=== PATIENT | male | born 1965 | race Caucasian/White ===

== ENCOUNTER 2023-07-24 16:00 | Inpatient (IN) | payer OTHER, SELFPAY ==
[2023-07-24] VITALS (8 sets, daily range): BP systolic 103–149; BP diastolic 63–88; BMI 36.9
--- NOTE | 2023-07-24 08:54 | ED.GENMED ---
History of Present Illness
General
Chief Complaint: Chest Pain
Source: patient
Exam Limitations: none
Time Seen by Provider: 07/24/23 08:42
Nursing documentation reviewed up to this point in time: agreed with
Travel History
Have you had any contact with someone who has COVID-19?: No
Do you have any symptoms of coronavirus? Fever > 100 degrees, chills, cough, shortness of breath, sore throat, loss of taste or smell, muscle aches, or headache?: No
History of Present Illness
History of Present Illness:
Patient is a 57-year-old male who presents to the ER for evaluation of intermittent chest pain for the past 2 weeks. He reports he will get pain across his chest and also in his bilateral forearms would last about 5 to 10 minutes. He breaks out in
a sweat and the symptoms go away. He will take baby aspirin up to 2 at a time when he gets the pain but throughout the day because he is afraid the pains can come back he takes additional aspirin and takes up to 10 baby aspirin a day at times. He
denies any shortness of breath with it. He reports he recently moved back from [place] and has not been able to see a physician. His first appointment scheduled for September. He does report he is under a lot of stress going through divorce but does
not feel that this is stress causing his symptoms. He does have a history of hypertension diabetes high cholesterol and ran out of some of his medications. He is taking lisinopril and metformin has not taken his atorvastatin in the the past 3
weeks.
He does not smoke. His brothers have a history of stents. He tells me when he was in [place] he did have a cardiac catheterization about 3 years ago which was normal.
Review of Systems
Review of Systems
Allergies reviewed?: Yes
All Other Systems: ROS reviewed and negative except as documented in HPI and ROS
Constitutional: Reports no symptoms; Denies fever, fatigue or chills
Respiratory: Reports no symptoms
Cardiac: Reports chest pain and diaphoresis; Denies palpitations or syncope
ABD/GI: Denies no symptoms
: Reports no symptoms
Musculoskeletal: Reports no symptoms
Skin: Reports no symptoms
Neurological: Reports no symptoms
Psychiatric: Reports no symptoms
Phy Exam
General Physical Exam
General Presentation: no apparent distress
General age: appears stated age
General Skin: warm and dry
General Habitus: normal
General Mental: alert
General Hydration: appears well hydrated
Cardiovascular Exam
Cardiovascular Exam: regular rate/rhythm, no murmur and normal peripheral pulses
Neurological Exam
Neurological Exam: alert and oriented x3
Musculoskeletal Exam
Musculoskeletal Exam: full ROM
Skin Exam
Skin Exam: normal color and warm/dry
Psychiatric Exam
Psychiatric Exam: normal mood/affect
Scores
Heart Score for Chest Pain Patients
STEMI patient?: Not applicable
Course
Orders/Labs/Results
Orders:
Orders
07/24/23 08:31
EKG [Electrocardiogram (*1)] Urgent
Reason for Study: Chest Pain
EKG- Treatment ONCE
07/24/23 08:53
Cardiac Monitoring- Treatment ONCE
IV Insert/Care/Rem.- Treatment PRN
CR Chest - 2 Views Urgent
Comment:
Reason For Exam: cp
07/24/23 09:14
Complete Blood Count/With Diff Urgent
Comprehensive Metabolic Panel Urgent
Troponin I Urgent
07/24/23 10:03
Lorazepam [Ativan] 1 mg IV NOW STA
07/24/23 10:27
0.9% Sodium Chloride 1000 ml [Nss] 1,000 ml IV BOLUS
07/24/23 10:50
PTT Urgent
07/24/23 11:28
Heparin 4,000 units IV NOW STA
Pharmacy Request to Place See Dose Instructions PO NOW STA
Discontinue all Active Warfarin orders?: Yes
Nursing to Place Non Medication Order As Directed
Physician Order: PTT 6 hours after initial start of Heparin infusion
07/24/23 11:30
Heparin INFUSION titrate rate - CONTINUOUS Heparin 78511 Units/250 ml 25,000 units in 250 ml IV PER PROTOCOL
Weight to be used for heparin protocol in kilograms (kg):: 127.006
Protocol:: Cardiac Tx/Acute Coronary
PTT Goal Range to be used:: PTT 73 to 111 seconds
Order type:: Initial
INITIAL Infusion Dose (UNITS/KG/hr) & then follow protocol:: 12 units/kg/hr
Infusion Dose in UNITS/hr & then follow protocol (UNITS/hr):: 1,000
INFUSION RATE in mL/hr & then follow protocol (mL/hr):: 10
PTT less than or equal to 64 seconds:: Increase rate by 200 units/hr (+ 2 mL/hr)
PTT 64.1 to 72.9 seconds:: Increase rate by 100 units/hr (+ 1 mL/hr)
PTT 73 to 111 seconds:: Target Range. No change in rate.
PTT 111.1 to 130.9 seconds:: Decrease rate by 100 units/hr (- 1 mL/hr)
PTT 131 to 199.9 seconds:: HOLD for 1 hr. Then decrease rate by 200 units/hr (- 2 mL/hr)
PTT greater than or equal to 200 seconds:: HOLD for 2 hrs & Notify Provider. Then decrease by 200 units/hr (-
2 mL/hr)
Lab follow-up:: Each change, PTT q6h until 2 consecutive are therapeutic. Then PTT
daily.
07/24/23 11:31
EKG- Treatment ONCE
07/24/23 11:35
Lorazepam [Ativan] 1 mg IV NOW STA
07/24/23 12:[address] See Dose Instructions IV DIRECTED
07/24/23 12:15
Electrocardiogram (*1) Stat
Reason for Study: Other
Other Reason for Exam: chest pain
Troponin I Urgent
Abnormal Lab Results
07/24/23
09:14
Abs Immat Gran (auto) 0.1 H 10^3/uL
(0-0.05)
Immature Gran % 0.7 H %
(0-0.5)
Eosinophils % 6.1 H %
(0-6)
BUN 21 H mg/dl
(9-20)
Creatinine 0.6 L mg/dL
(0.7-1.3)
Glucose 344 H mg/dl
(70-99)
Troponin I 0.036 H* ng/ml
07/24/23 09:14
07/24/23 09:14
Vital Signs
Initial and Last Documented VS:
Initial Vital Signs
Temp Pulse Resp BP Pulse Ox
98.1 F 81 16 149/69 96
07/24/23 08:36 07/24/23 08:36 07/24/23 08:36 07/24/23 08:36 07/24/23 08:36
Last Documented Vital Signs
Temp Pulse Resp BP Pulse Ox
97.5 F 83 16 148/88 95
07/24/23 10:48 07/24/23 10:48 07/24/23 10:48 07/24/23 10:48 07/24/23 10:48
[employer] Consultant consulted with Physician
[employer] Consultant consulted with physician?: Yes
Name of Physician Consulted: Juani
MDM/Problems Addressed
Differential Diagnosis Includes:
not limited to : ACS PE
MDM/Problems Addressed:
10:25 am : As documented patient is a 37 show male who presented today with intermittent chest pain for the past 2 weeks. He reports a generalize pain to the upper chest into his forearms associate with diaphoresis. He has not had hypertension
high cholesterol [id number] diabetes. He reports he is under a lot of stress recently going through divorce recently moved from [place] but does report he had a normal cardiac cath 3 years ago while he was living there. Patient has
taken multiple doses of baby aspirin over the past intermittent 2 weeks and believes he took at least 4 since 3 AM. Patient presents with no acute ST elevation but an elevated troponin. Cardiology was consulted and presently evaluated patient. Pt
however is very anxious has been done with anxiety for a while. He in fact is pacing in the room. Patient was offered Ativan agreeable to this however very concerned and being admitted.
11:29: Patient is agreeable to admission. IV heparin as per cardiology orders. Will notify cardiology and admit to hospitalist.
Chronic conditions affecting care:
Patient with history of diabetes high cholesterol hypertension
*Radiology
Radiology exam reviewed: radiology read reviewed
*Pulse Oximetry
Patient hypoxic: no
*EKG
Interpretation: normal
Comparison EKG: no comparison EKG present
Heart Rate: 79
Rate: normal
Rhythm: sinus
Ischemia: no ischemia
*Critical Care Note
Total Time (30-74mins, 75-104mins- exclusive of procedures): Not Applicable
Patient Management
Discussion with other providers: [employer] Work[employer] (cardiology )
ED Attending Note
-
Portions of this chart may have been created with voice recognition software.� Occasional wrong word or��sound alike� substitutions may have occurred due to the inherent limitations of voice recognition software.
Discharge Plan
Departure
Patient Disposition: Admit
Date of Disposition: 07/24/23
Time of Disposition: 11:34
Admit to: Telemetry
Admit to doctor: hospitalist
Presentation/result/management discussed w/ accepting MD/DO: Hospitalist
Patient with high blood pressure during this ER visit?: Yes
Condition: Fair
Covid-19: Not Applicable
Discharge Problem:
Chest pain
Prescriptions:
No Action
atorvastatin 40 mg tablet
40 mg PO DAILY
Patient Comments:
07/24/2023, pt. has not been able to fill new prescription since moving from [facility] yet.
metformin 1,000 mg Tablet
500 mg PO BID
dextroamphetamine-amphetamine [Adderall] 20 mg Tablet
20 mg PO DAILY PRN (Reason: ADHD)
Patient Comments:
07/24/2023, last filled on 03/31/2023 for 60 tablets per PDMP.
dextroamphetamine-amphetamine [Adderall] 20 mg Tablet
10 mg PO NOON PRN (Reason: ADHD)
Patient Comments:
07/24/2023, last filled on 03/31/2023 for 60 tablets per PDMP.
lisinopril 10 mg Tablet
10 mg PO DAILY
gabapentin 300 mg Capsule
600 - 900 mg PO HS PRN (Reason: tingling feet)
Patient Comments:
07/24/2023, pt. has not been able to fill new prescription since moving from [facility] yet.
testosterone cypionate 200 mg/mL Oil
300 mg IM Q2W
Patient Comments:
07/24/2023, last filled on 04/06/2023 for 28-day supply per PDMP.
turmeric 400 mg Capsule
400 mg PO DAILY
CoQ-10
1 cap PO DAILY
hydrocodone-acetaminophen
2 tab PO TID
Patient Comments:
07/24/2023, pt. using old prescription from 2006 and does not know the strength.
magnesium
1 tab PO DAILY
magnesium
1 - 2 tab PO HSPRN PRN (Reason: sleep)
aspirin 81 mg Tablet,Delayed Release (Dr/Ec)
81 mg PO DAILY
aspirin 81 mg Tablet,Delayed Release (Dr/Ec)
81 mg PO Q3HPRN PRN (Reason: chest pain)
Referrals:
Elvi Samuel MD [Family Provider] -
Interventions
Interventions:
*Risk Screen - Suicide Last Done: 07/24/23 09:07
*General Assessment Last Done: 07/24/23 09:07
*Neglect/Abuse Screening Last Done: 07/24/23 09:07
ED- Fall Risk Assessment Last Done: 07/24/23 09:07
*ED COVID-19 Vaccine History Last Done: 07/24/23 08:36
ED- Cardiac Assessment Last Done: 07/24/23 09:07
Discharge Date and Time
Print Language: SAO TOMEAN
--- NOTE | 2023-07-24 09:21 | EDRN ---
this RN entered the pts room and the pt had the quality assurance monitor final on, bp cuff on, and Sp02 monitor on and was standing at the side of the bed, the pt stated to this RN, 'I am sorry i can't lay down right now i am just too anxious, i am in the middle
of a divorce and i just have chest pain and i just feel like the zuniga are closing in on me and i just can't lay down right now', this RN asked the pt if he would be willing to sit on the side of the bed so that this RN could place a PIV and obtain
lab work and obtain a blood pressure, the pt was agreeable to sitting on the side of the bed, the pt appears anxious however the pt is pleasant and cooperative, VS WNL, labs drawn and sent, the pt was taken to xray and refused to be taken to xray
via stretcher, the pt wanted to walk, this RN notified the provider
[2023-07-24 09:25] LABS: % Basophils 0.6 % (0-2); % Eosinophils 6.1 % (0-6); % Immature Granulocytes 0.7 % (0-0.5); % Lymphocytes 25.8 % (20.5-51.1); % Monocytes 6.2 % (1.7-9.3); % Neutrophils 60.6 % (42.2-75.2); Absolute Eosinophils 0.4 10^3/uL (0-0.7); Absolute Immature Granulocytes 0.1 10^3/uL (0-0.05); Absolute Lymphocytes 1.9 10^3/uL (1.2-3.4); Absolute Monocytes 0.5 10^3/uL (0.1-0.6); Absolute Neutrophils 4.4 10^3/uL (1.4-6.5); Hematocrit 44.7 % (39.0-52.0); Hemoglobin 16.2 g/dL (13.0-18.0); Mean Corp Hgb Conc. 36.2 g/dL (33.0-37.0); Mean Corpuscular Hgb 29.2 pg (27.0-31.0); Mean Corpuscular Volume 80.7 fL (80.0-94.0); Mean Platelet Volume 9.4 fL (7.4-10.4); Nucleated Red Blood Cells % 0 % (-); Platelet Count 203 10^3/uL (130-400); Red Blood Cell Count 5.54 10^6/uL (4.70-6.10); Red Cell Dist. Width 12.1 % (11.5-14.5); White Blood Cell Count 7.3 10^3/uL (4.8-10.8)
[2023-07-24 09:39] LABS: ALT (SGPT) 35 U/L (0-50); AST (SGOT) 30 U/L (17-59); Albumin 4.3 g/dl (3.5-5.0); Alkaline Phosphatase 96 U/L (38-126); Blood Urea Nitrogen 21 mg/dl (9-20); Calcium 9.6 mg/dl (8.4-10.2); Carbon Dioxide 26 mmol/L (22-30); Chloride 101 mmol/L (98-107); Estimated Creatinine Clearance > 125 ml/min; Glucose 344 mg/dl (70-99); Potassium 4.8 mmol/L (3.5-5.1); Sodium 136 mmol/L (135-145); Total Bilirubin 0.9 mg/dl (0.2-1.3); Total Protein 7.1 g/dl (6.3-8.2); eGFR > 60.00
[2023-07-24 09:52] LABS: Troponin I 0.036 ng/ml
--- NOTE | 2023-07-24 09:58 | EDRN ---
Troponin elevated, this RN notified provider
--- NOTE | 2023-07-24 10:09 | EDRN ---
cardiology currently at the pts bedside, the pt is standing up walking around the room, the pt refuses to be placed on equipment monitor phototypesetting and refuses to sit in the stretcher, this RN notified provider
[2023-07-24] MEDS: ATIVAN 1 MG IV ×2 (10:19→11:38)
--- NOTE | 2023-07-24 10:23 | EDRN ---
with this RN at the pts bedside and cardiology the pt was compliant with sitting on the side of the bed and being placed on the monitor, the pt is hyperventilating and this RN administered Ativan IV for anxiety
--- NOTE | 2023-07-24 10:34 | CON.CAR ---
Addendum entered and electronically signed by Reid Winn MD 07/24/23 19:27:
I spoke with Jose A on the phone to try and prevent him from leaving AGAINST MEDICAL ADVICE. I advised him that leaving without medication could cause harm because he is in atrial fibrillation with rapid ventricular response and just received a
stent. The risks included stroke and . He had just received a stent. He understands this and is okay with going home. He would not tell me necessarily what was important thing that he had to do he said that he had his dog he needs to take
care of. He was able to tell me the risks of leaving which included and verbalized his understanding to me.
Addendum entered and electronically signed by Reid Winn MD 07/24/23 12:40:
I saw and examined the patient.
The ERGONOMIC SPECIALIST's note was reviewed and I agree with the note.
Comment: 57 yo male with HTN, HLD, and NIDDM, who presents to the ER with c/o chest pain for 2 weeks. He describes pain to his right shoulder that radiates to his mid chest area, lasts for 5-10 minutes and resolves on its own.
- heparin gtt, statin, aspirin, lab pack chemist
Original Note:
Consultation
Consultation Request
Date/Time Consultation Requested: 07/24/23 10a
Date/Time Consultation Performed: 07/24/23 10:15
Requesting Provider: MABLE Haynes
Performing Provider: MABLE Hernandez for Dr. Winn
Reason for Consultation: chest pain
Medical History
-
Chief Complaint: chest pain
History of Present Illness:
Mr. Marvin is a 57 yo male with HTN, HLD, and NIDDM, who presents to the ER with c/o chest pain for 2 weeks. He describes pain to his right shoulder that radiates to his mid chest area, lasts for 5-10 minutes and resolves on its own. The pain
occurs with exertion, initially began 2 weeks ago then resolved for several days and has now returned and is relieved with rest. There is associated SOB and PND/orthopnea. He has been taking 10 ASA 81mg daily. Currently he denies any chest pain.
He is extremely anxious and pacing around his room. He states moving here in February 2023 from [place], [place] and is going through a divorce. He has no family local, his ex- is in [place]. He had a cath in [place] 3 years ago that was 'clean'
per his report and is very anxious about having another cath because the wrist cath site hurt. He has not seen a physician since he moved here and he has run out of his medications, only still taking Lisinopril. He typically takes Lisinopril,
Metformin, Lipitor, Gabapentin and Adderall. EKG with NSR, no ischemia. Initial troponin 0.036.
Past Medical History
Past Medical History: Other (as above)
Past Surgical History: Orthopedic (b/l hip and knee replacements)
Social History
Tobacco: Non-Smoker
Alcohol: Occasional
Personal:
Living: Alone
Family History
Family History: Early CAD (3 brothers have stents)
Allergies / Home Medications
Allergy/AdvReac Type Severity Reaction Status Date / Time
No Known Allergies Allergy Unverified 07/24/23 08:37
Review of Systems
-
History Source: Patient
All other systems: Negative unless noted
Physical Exam
Vital Signs
Temp Pulse Resp BP Pulse Ox
98.1 F 79 23 143/71 95
07/24/23 08:36 07/24/23 09:15 07/24/23 09:00 07/24/23 09:10 07/24/23 09:10
Lab Results
07/24/23 09:14
07/24/23 09:14
Troponin I 0.036 ng/ml H* 07/24/23 09:14
Physical Exam
General: Well Developed, Well Nourished, No Apparent Distress and Other (anxious, pacing around his room)
HEENT: Normocephalic and Anicteric
Respiratory: Clear (diminished b/l bases)
Cardiac: S1/S2 and Regular Rhythm
Breast: Deferred by me
GI: Soft, Non Tender, Non Distended and Normal Bowel Sounds
Rectal: Deferred by Provider
Genito-urinary: No Costovertebral Tender
Musculoskeletal: No Clubbing, No Cyanosis and No Edema
Skin: Warm and Dry
Neuro: AO x 3
Psych: Other (anxious)
Impression / Plan
-
Chest pain - concerning for angina.
- exertional chest pain for 2 weeks, abnormal initial troponin 0.036.
- trend troponin.
- plan for [facility] today, he understands but wants to talk to his family before agreeing to stay for a [facility].
- check echo.
HTN - chronic.
- on Lisinopril as an outpatient, continue.
- monitor.
HLD - chronic.
- ran of out Lipitor weeks ago.
- check lipid profile.
NIDDM - elevated glucose on arrival.
- ran out of meds (Metformin) weeks ago.
- needs to establish with a PCP locally for follow up.
Anxiety - worse recently.
- given Ativan in the ER.
Data Reviewed
-
EKG: Tracing Personally Visualized and interpreted (NSR)
Radiology: Report Reviewed by me (CXR: NAD)
Labs: Labs Reviewed by me
--- NOTE | 2023-07-24 10:54 | EDRN ---
the pt does not want heparin gtt hung yet, the pt stated to this RN, 'I have to make some calls and see what i want to do, i don't even know if i want the catheter yet as i told the human resources representative before, so just hold off on everything', this RN
notified the provider, the pt is sitting on the side of the stretcher, VS WNL, monitor on which the pt is compliant with and agreeable to, will continue to monitor the pt closely
[2023-07-24 11:07] LABS: APTT 24.5 Sec (23.4-35.0)
[2023-07-24] MEDS: NSS 1000 IV ×2 (11:11→16:01)
--- NOTE | 2023-07-24 11:13 | EDRN ---
the pt stated to this RN that he wants to stay and get the heart catheterization, this RN notified the provide Alexus Hoffman NP
--- NOTE | 2023-07-24 11:33 | EDRN ---
this RN called pharmacy to verify heparin gtt
[2023-07-24] MEDS: HEPARIN 25000 UNITS/250 ML IV (11:40)
[2023-07-24] MEDS: HEPARIN 4000 UNITS IV (11:43)
--- NOTE | 2023-07-24 11:47 | EDRN ---
Heparin gtt hung and currently running at 1000units/hour, the pt is resting in stretcher in the lowest position, side rails up x2, call rodriguez within reach, HOB elevated, no s/s of distress, no c/o chest pain, the pt had another c/o anxiety, Ativan
1mg IV administered, will continue to monitor the pt closely
--- NOTE | 2023-07-24 12:10 | HPS.HSE ---
Family Physician
-
Family Physician: Elvi Samuel
Chief Complaint
-
chest pain
History of Present Illness
57 yo male with HTN, HLD, and NIDDM, who presents to the ER with c/o chest pain for 2 weeks. He describes pain to his right shoulder that radiates to his mid chest area to left shoulder that lasts for 5-10 minutes and resolves on its own. It was
happening only once for last 2 weeks . Yesterday he he felt the pain twice . Today he he noticed pain in the morning . Patient stated pain worse with exertion , relieved with rest . Patient was taking Vicodin for pain patient complained of short
of breath with panic attacks . Denied any short of breath with chest pain .patient denied any headache, dizziness, syncopal episode .patient denied any fever or chills, runny nose, congestion .patient denied any abdominal pain, nausea, vomiting,
diarrhea .patient denied any dysuria, hematuria.
on arrival EKG with NSR. elevated trop. heparin ordered. cardiology consulted for possible cardiac cath.
Medical History
Past Medical History
Past Medical History: Reports Other
Additional Past Medical History:
Hypertension
Hyperlipidemia
Type 2 diabetes
Past Surgical History: Reports Other
Additional Past Surgical History:
Right hip replacement
Left ankle reconstruction
Clinical surgery
Bilateral knee replacement
Social History
Tobacco: Smoker (Occasional cigar)
Alcohol: Occasional
Drug: None
Personal: Single
Living: Alone
Employment: Not Employed
Family History
Family History: Not pertinent
Allergies / Home Medications
Allergies reflects when Allergies were last updated in [facility].
Home Medications with original date entered in [facility]
Allergy/Medication List:
Allergies
Allergy/AdvReac Type Severity Reaction Status Date / Time
No Known Allergies Allergy Unverified 07/24/23 08:37
Home Medications
CoQ-10 1 cap PO DAILY 07/24/23
aspirin 81 mg tablet,delayed release 81 mg PO DAILY 07/24/23
aspirin 81 mg tablet,delayed release 81 mg PO Q3HPRN PRN chest pain 07/24/23
atorvastatin 40 mg tablet 40 mg PO DAILY 07/24/23
dextroamphetamine-amphetamine 20 mg tablet (Adderall) 10 mg PO NOON PRN ADHD 07/24/23
dextroamphetamine-amphetamine 20 mg tablet (Adderall) 20 mg PO DAILY PRN ADHD 07/24/23
gabapentin 300 mg capsule 600 - 900 mg PO HS PRN tingling feet 07/24/23
hydrocodone-acetaminophen 2 tab PO TID 07/24/23
lisinopril 10 mg tablet 10 mg PO DAILY 07/24/23
magnesium 1 - 2 tab PO HSPRN PRN sleep 07/24/23
magnesium 1 tab PO DAILY 07/24/23
metformin 1,000 mg tablet 500 mg PO BID 07/24/23
testosterone cypionate 200 mg/mL intramuscular oil 300 mg IM Q2W 07/24/23
turmeric 400 mg capsule 400 mg PO DAILY 07/24/23
Review of Systems
-
Constitutional: Reports No Symptoms
EENT: Reports No Symptoms
Respiratory: Reports Trouble Breathing
Cardiac: Reports Chest Pain
Abdomen/GI: Reports No Symptoms
: Reports No Symptoms
Musculoskeletal: Reports No Symptoms
Skin: Reports No Symptoms
Neurological: Reports No Symptoms
Endocrine: Reports No Symptoms
Hematologic/Lymphatic: Reports No Symptoms
Psych: Reports No Symptoms
Physical Exam
Vital Signs
Vital Signs
Temp Pulse Resp BP Pulse Ox
97.5 F 83 16 148/88 95
07/24/23 10:48 07/24/23 10:48 07/24/23 10:48 07/24/23 10:48 07/24/23 10:48
Physical Exam
General: Well Developed, Well Nourished and No Apparent Distress
HEENT: NormoCephalic, Moist mucous membranes and Atraumatic
Respiratory: Clear
Cardiac: S1/S2 and Regular Rhythm; No Murmur or Rub
GI: Soft, Non Tender, Non Distended and Normal Bowel Sounds; No Organomegaly
Rectal: Deferred by Provider
Musculoskeletal: No Clubbing, No Cyanosis and No Edema
Skin: No Rash
Neuro: AO x 3 and Nonfocal/grossly intact
Psych: Calm
Laboratory Results
-
07/24/23 09:14
07/24/23 09:14
Laboratory Results
APTT 24.5 Sec (23.4-35.0) 07/24/23 10:50
Total Bilirubin 0.9 mg/dl (0.2-1.3) 07/24/23 09:14
AST 30 U/L (17-59) 07/24/23 09:14
ALT 35 U/L (0-50) 07/24/23 09:14
Alkaline Phosphatase 96 U/L (38-126) 07/24/23 09:14
Troponin I 0.036 ng/ml H* 07/24/23 09:14
Data Reviewed
-
Diagnostic Radiology: Report Reviewed by me
Lab Data: Labs Reviewed by me
Impression/Plan
-
# Chest pain rule out acute coronary syndrome
-Elevated troponin
-IV heparin
-For possible cardiac cath
-Cardiology consulted
-Trend troponin
-Chest x-ray with no acute cardiopulmonary process
-EKG with normal sinus rhythm
-obtain echocardiogram
# Type 2 diabetes with hyperglycemia
-Insulin continued
-Sliding scale
-Continue to monitor blood sugar
-Hold metformin
#HTN - chronic.
- on Lisinopril
- monitor.
#HLD - chronic.
-Atorvastatin continued
# ADHD
-Adderall continued
# Neuropathy
-Gabapentin continued
# DVT prophylax
-Heparin subcu
# CODE STATUS
-Full code
--- NOTE | 2023-07-24 12:31 | EDRN ---
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
--- NOTE | 2023-07-24 14:11 | ITS.CL.ANGIO ---
Florist Helper - Angioplasty
Angioplasty
Procedure Report:
CARDIAC CATHETERIZATION REPORT
Date of Procedure: 07/24/2023
Referring: Reid Winn M.D.
INDICATION: Non-ST elevation myocardial infarction.
PROCEDURE:
1. Left heart catheterization.
2. Coronary angiography.
3. Successful PCI of the large ostial diagonal.
ACCESS:
6 [place] right radial artery.
CATHETERS:
1. 5 [place] JR4.
2. 5 [place] JL 3.5.
3. 6 [place] JL 4.0 guiding catheter.
HEMODYNAMIC DATA
Weight (kg): 127.0
AO (s/d/x, mmHg): 151/88/114
LV (s/x mmHg): 151/32
LEFT VENTRICULOGRAPHY: Not performed.
CORONARY ANGIOGRAPHY
Dominance: Right.
Left Main: Congenitally absent.
LAD: Normal size vessel arising directly from the aorta and giving rise to 1 significant diagonal. The diagonal is a large vessel, supplying the majority the anterolateral wall. There is a hazy, 90% lesion in the ostium/proximal margin of the
vessel.
Ramus: Congenitally absent.
Circumflex: Large size, nondominant vessel arising directly off of the aorta and giving rise to 5 obtuse marginals before terminating as a trifurcating left posterolateral branch. OM's 1 through 4 are relatively small vessels, approximately 1.5
mm in diameter. OM 5 is a more substantial vessel with minor luminal irregularities. The left posterolateral branch trifurcates into 3 medium sized vessels. There is a 70% lesion in the proximal margin of the middle posterolateral branch.
RCA: Normal size, dominant vessel. There are tandem 60-70% lesions in the distal RCA leading into the large RPDA.
INTERVENTION(S)
1. Successful PCI of the 90% ostial/proximal diagonal lesion (Xience Skypoint 2.25 x 15 ENRIQUE, postdilated with a 2.5 NC balloon) with reduction in stenosis to 0%, maintaining HOMERO-3 flow.
Narrative:
The decision was made to proceed with percutaneous coronary intervention. The diagnostic catheter was removed over a wire and a 6Fr EBU 3.5 guiding catheter was advanced to the aortic root and seated in the left circumflex origin. Additional heparin
was given and a Power Turn Flex wire was advanced into the left circumflex. A BMW wire was then advanced in the EBU was disengaged from the circumflex with the power turn flex wire still in place. By disengaging, the BMW wire was able to exit the
guide and attempt to cannulate the proximal LAD. Unfortunately, after numerous attempts, this proved unsuccessful. Both wires were removed and the EBU guide was exchanged over a J-wire for a 6 [place] JL 4 guiding catheter. With some degree of
difficulty, the JL 4 guide was seated in the ostium of the LAD. The power turn flex wire was advanced into the distal LAD. The BMW wire was advanced into the distal diagonal. Unfortunately, this caused the catheter to mildly disengage, making
visualization difficult. The decision was made to advance a guide liner for more consistent visualization. The GuideLiner was advanced over a 2.0 x 12 semicompliant balloon, allowing us to visualize the LAD coronary tree. The 90% ostial/proximal
diagonal lesion was predilated with a 2.0 x 12 semi-compliant balloon to 12 jose. The semi-compliant balloon was removed and a Xience Skypoint 2.25 x 15 drug-eluting stent was advanced. Meticulous care was taken while positioning the stent, ensuring
that the proximal stent margin remained within the origin of the diagonal and did not intrude into the LAD. The stent was deployed at 9 atmospheres. The stent balloon was removed. A 2.5 x 12 noncompliant balloon was advanced into the stent and the
distal stent was postdilated to 12 atmospheres. The proximal stent margin was postdilated to 14 jose. Angiography was performed in orthogonal views, confirming good stent expansion and an excellent angiographic result.
Given the difficulty with cannulating the artery as well as the patient's body habitus, we had consumed a large contrast and radiation budget. The decision was made to manage his LPL and distal RCA disease medically at this time. The coronary wire
was withdrawn and the guide was disengaged from the artery. The catheter was removed over a standard J-wire.
Closure Device: Vascular band.
Radiation (mGy): 2413.20
DAP (cm2.Gy): 149.15
Fluoroscopy time (minutes): 15.9
Sedation time (minutes): 59
CONCLUSIONS
1. Right dominant circulation with tandem 60-70% lesions in the distal RCA leading into the RPDA, a 70% lesion in the proximal margin of the middle posterolateral branch off of the left circumflex and a culprit, 90% lesion in the ostial/proximal
diagonal, status post successful PCI (Xience Skypoint 2.25 x 15 ENRIQUE, postdilated with a 2.5 NC balloon) diagonal, status post successful PCI (Xience Skypoint 2.25 x 15 ENRIQUE, postdilated with a 2.5 NC balloon) with reduction in stenosis to 0%,
maintaining HOMERO-3 flow. 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 The LAD and circumflex both originate directly off of the aorta.
2. Severely elevated filling pressures (LVEDP = 32 mmHg at 127.0 kg).
RECOMMENDATIONS:
1. Expectant management after cardiac catheterization via right radial approach.
2. Limited weight bearing on the right wrist for one week.
3. Dual antiplatelet therapy with aspirin and ticagrelor for at least 12 months, followed by aspirin indefinitely.
4. Aggressive lifestyle and risk factor modification. High-dose, high potency statin.
5. Guideline directed medical therapy as hemodynamics will tolerate.
6. Aggressive diuresis given filling pressures. He would likely benefit from SGLT2 inhibitor. He would also likely benefit from GLP-1 analog.
7. Echocardiogram ordered and pending.
8. Referral to cardiac rehab. If the patient is able to perform activities of daily living and cardiac rehab after appropriate diuresis and medical management, then we will continue to manage his residual coronary disease disease medically. If he
reports angina after appropriate diuresis, I would be in favor of PCI of the long 60-70% RCA lesions as this is clearly a large territory compared to the middle branch of the LPL.
Copy to: Reid Winn M.D., Elvi Samuel M.D.
Nick Cartagena DO, FACC, FACP
--- NOTE | 2023-07-24 14:38 | W.PN.UPDATE ---
Update Note
Progress Note Update
I saw and examined the patient.
The RADIO ELECTRICIAN or PA's note was reviewed and I agree with the note.
Comment: 57-year-old male who presents with a chief complaint of chest pain.
103/64, 70, 16, 97.5 F, 90% RA
NAD, awake and alert
RRR, normal S1/S2
CTAB
CN2-12 intact
WBC 7.3, Hb 16.2, plt 203
Cr 0.6
Trop 0.036
ECG (read by me): NSR @ 76, normal axis/intervals, TWi III, aVF, V6, no acute ST changes
CXR: No acute cardiopulmonary process.
Cardiac cath:
1. Right dominant circulation with tandem 60-70% lesions in the distal RCA leading into the RPDA, a 70% lesion in the proximal margin of the middle posterolateral branch off of the left circumflex and a culprit, 90% lesion in the ostial/proximal
diagonal, status post successful PCI (Xience Skypoint 2.25 x 15 ENRIQUE, postdilated with a 2.5 NC balloon) diagonal, status post successful PCI (Xience Skypoint 2.25 x 15 ENRIQUE, postdilated with a 2.5 NC balloon) with reduction in stenosis to 0%,
maintaining HOMERO-3 flow. 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 The LAD and circumflex both originate directly off of the aorta.
2. Severely elevated filling pressures (LVEDP = 32 mmHg at 127.0 kg).
Unstable angina:
-s/p cath with ENRIQUE to 90% lesion in the ostial/proximal diagonal
-cont Brilinta/ASA/statin
-diuresis with elevated LVEDP
-check echo
DM2:
-check a1c
-hold home Metformin
-SSI/accuchecks
Essential HTN:
-cont Lisinopril with holding parameters
Obesity due to excess calories:
-BMI 36.9
-Encourage weight loss
-Affects all aspects of care
[2023-07-24] MEDS: ATIVAN 0.5 MG PO (15:24)
--- NOTE | 2023-07-24 15:49 | CM ---
Reviewed chart. Met with Miguel Matthew to review discharge plans. He states prior to admission he resides alone in a one story home without any steps to enter He states prior to admission he was independent with ambulation and adls. He states he does
not have any DME in the home. He states he has a prescription plan with Lash[facility] and uses [facility]. Telephone call to [facility] on [address] to confirm if they have Brilinta in stock. They do not have it in stock. Telephone call to
[facility] to confirm if they have Brilinta 90 mg po bid in stock. [facility] does have it in stock. DOCUMENT CONTROL ASSOCIATE sent script to [facility]. Telephone call to [facility] to check on co-pay for Brilinta. [facility] states zero co-pay. Placed
the $5.00 coupon in his red discharge folder. if needed. Reviewed with MiguelMatthew. Medical work-up in progress. The discharge plan is to return home when medically stable.
[2023-07-24 15:53] LABS: ACT-LR - POC > 397 Seconds (116-155)
[2023-07-24 16:01] LABS: Troponin I 0.042 ng/ml
[2023-07-24] MEDS: ADDERALL 20 MG PO (16:01)
--- NOTE | 2023-07-24 17:34 | W.PN.UPDATE ---
Addendum entered and electronically signed by Reid Winn MD 07/25/23 07:27:
Additionally, patient left AGAINST MEDICAL ADVICE please see previous note describing this. I have called into the [facility] on [address] on 07/24/2023, atorvastatin 80 mg daily, Eliquis 5 mg twice daily, Plavix 75 mg daily, metoprolol 50 XL daily
Original Note:
Update Note
Progress Note Update
I visited the patient to explain his cardiac catheterization/PCI. During this conversation, I noted that his telemetry was highly irregular with HR up to 140 bpm.
12 lead EKG confirms atrial fibrillation (new diagnosis). The patient is asymptomatic.
Metoprolol 5 mg IV ordered for now, followed by metoprolol succinate 50 mg PO daily (first dose now).
Ticagrelor was discontinued.
Plan to load with clopidogrel 600 mg tomorrow morning, followed by 75 mg daily.
Apixaban 5 mg PO BID, first dose tonight.
I updated my on-call cardiology partner (Dr. Winn).
[2023-07-24] MEDS: LOPRESSOR 5 MG IV (17:37)
[2023-07-24 17:47] LABS: Glucose - Point of Care 265 mg/dl (70-99)
[2023-07-24] MEDS: NOVOLOG FLEXPEN-MODERATE RESISTANCE 5 UNITS SC (17:50)
--- NOTE | 2023-07-24 18:34 | PTCARENOTE ---
Received patient from the [facility] lab at 1445 after cath via R radial with PCI. Post EKG done, patient in SR. Patient was very anxious upon admission to the floor, having difficulty staying in the bed. Right radial band in place which is dry and intact
with a strong radial pulse. Patient has been noncompliant with post cath VS, extremely restless stating he cannot lie in bed. Patient given prn ativan and prn adderall as ordered. respiratory care technician was able to perform echo as ordered. Patient was seen by
Dr. Cartagena and noted his rhythm had changed to AF, confirmed by EKG. Notified Dr. Cartagena that his rate was in the 130-140's. Given IV metoprolol as ordered, rate now 110's. Removing air from radial band but remains noncompliant with VS. Permitted to
ambulate down the barrios to help with his severe anxiety however now he states he does not want to stay and would like to sign out AMA. Reinforcing importance of remaining in the hospital however patient is unable to be persuaded. Notifying attending.
--- NOTE | 2023-07-24 19:46 | PTCARENOTE ---
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 Had pulled out his IV and taken off his telemetry. Stated 'I'm leaving', 'I told them I wouldn't stay'. Despite trying to reason the importance of staying he continued to refuse to stay.
Notified Dr. Winn, and tt to house doctor documentation billing clerk to come sign AMA form with the patient and they were willing to give the patient prescriptions. Patient standing at the desk, pacing. While waiting for hospitalist patient left down the back
steps. Dr. Winn notified, pharmacy info given for the patient's prescriptions.
== END 2023-07-24 19:00 | disposition left against medical advice (07) | DRG 322 ==
LOC: EICU 16:00
PROVIDERS: Nurse Practitioner; Registered Nurse; ADMITTING PHYSICIAN Internal Medicine; ATTENDING PHYSICIAN Internal Medicine Cardiovascular Disease; CONSULT PHYSICIAN Internal Medicine Cardiovascular Disease; EMERGENCY PHYSICIAN Emergency Medicine; FAMILY PHYSICIAN Student in an Organized Health Care Education/Training Program
PROC: 4A023N7 Measurement of Cardiac Sampling and Pressure, Left Heart, Percutaneous Approach (ICD-10-PCS; 2023-07-24)
PROC: 027034Z Dilation of Coronary Artery, One Artery with Drug-eluting Intraluminal Device, Percutaneous Approach (ICD-10-PCS; 2023-07-24)
PROC: B2111ZZ Fluoroscopy of Multiple Coronary Arteries using Low Osmolar Contrast (ICD-10-PCS; 2023-07-24)
PROC: B2151ZZ Fluoroscopy of Left Heart using Low Osmolar Contrast (ICD-10-PCS; 2023-07-24)
DX: I21.4 Non-ST elevation (NSTEMI) myocardial infarction (principal); Z79.82 Long term (current) use of aspirin; I10 Essential (primary) hypertension; E78.00 Pure hypercholesterolemia, unspecified; E11.65 Type 2 diabetes mellitus with hyperglycemia
CPT/HCPCS: 71046; 80053; 82962; 84484; 85025; 85347; 85730; 93005; 93306; 93458; 96374; 96375; 96376; 99285; C1725; C1769; C1874; C1894; Q9967